=== PATIENT | male | born 1955 | race Caucasian/White ===

== ENCOUNTER 2021-05-12 11:48 | Emergency (ER) | payer BC ==
[~2021-05-12] VITALS: Ht 177.8 cm; Wt 114.3 kg
[2021-05-12] MEDS ORDERED: ASPIRIN 81 MG CHEW TAB PO ONE (12:15)
[2021-05-12 12:31] LABS: EOSINOPHILS # (AUTO) 0.1 (0.0-0.4); EOSINOPHILS % 0.3 % (0.0-6.0); HEMATOCRIT 43.6 % (38.2-49.6); HEMOGLOBIN 13.9 g/dL (14.0-18.0); LYMPHOCYTES # (AUTO) 40.1 (1.0-3.2); LYMPHOCYTES % 83.7 % (18.0-39.1); MEAN CORPUSCULAR HGB CONC 31.9 g/dL (31-35); MEAN CORPUSCULAR VOLUME 94.2 fL (81-99); MONOCYTES # (AUTO) 0.8 (0.2-0.8); MONOCYTES % 1.6 % (4.4-11.3); NEUTROPHILS # (AUTO) 6.7 (2.1-6.9); NEUTROPHILS % 13.9 % (38.7-80.0); PLATELET COUNT 140 x10e3/uL (140-360); RED BLOOD COUNT 4.63 x10e6/uL (4.3-5.7); RED CELL DISTRIBUTION WIDTH 15.3 % (11.7-14.4)
[2021-05-12 12:40] LABS: INR 1.07; PARTIAL THROMBOPLASTIN TIME 30.3 seconds (23.8-35.5); PROTHROMBIN TIME 14.3 seconds (11.9-14.5)
[2021-05-12 12:51] LABS: ALBUMIN 4.5 g/dL (3.5-5.0); ALBUMIN/GLOBULIN RATIO 2.3 (0.8-2.0); ANION GAP 13.1 mmol/L (8-16); BILIRUBIN,DIRECT 0.4 mg/dL (0.0-0.5); CALCIUM 9.4 mg/dL (8.4-10.2); CREATININE, SERUM 0.92 mg/dL (0.72-1.25); MAGNESIUM 1.4 MG/DL (1.3-2.1); POTASSIUM 4.1 mmol/L (3.5-5.1)
[2021-05-12 12:57] LABS: CREATINE KINASE MB 1.5 ng/mL (0-5.0)
[2021-05-12 14:04] LABS: EOSINOPHILS % (MANUAL) 1 % (0-7); LYMPHOCYTES % (MANUAL) 41 % (19-48); MONOCYTES % (MANUAL) 1 % (3.4-9.0); NEUTROPHILS % (MANUAL) 12 % (40-74)
[2021-05-12 14:07] LABS: PLATELET ESTIMATE ADEQUATE; PLATELET MORPHOLOGY COMMENT NORMAL; RBC MORPHOLOGY COMMENT NORMAL; SMUDGE CELLS FEW
== END 2021-05-12 18:48 | disposition home or self-care (01) ==
LOC: ER 12:30
DX: K40.90 Unilateral inguinal hernia, without obstruction or gangrene, not specified as recurrent (principal); I10 Essential (primary) hypertension; E11.65 Type 2 diabetes mellitus with hyperglycemia
CPT/HCPCS: 36415; 71045; 80053; 82248; 82550; 82553; 83690; 83735; 83880; 84484; 85025; 85610; 85730; 88112; 88305; 93005; 99284; U0002

== ENCOUNTER 2022-08-11 12:33 | Emergency (ER) | payer BC ==
[~2022-08-11] VITALS: Ht 177.8 cm; Wt 114.3 kg
[2022-08-11 13:29] LABS: BASOPHILS # (AUTO) 0.1 (0.0-0.1); BASOPHILS % 0.2 % (0.0-1.0); HEMATOCRIT 45.1 % (38.2-49.6); HEMOGLOBIN 13.8 g/dL (14.0-18.0); LYMPHOCYTES # (AUTO) 30.4 (1.0-3.2); LYMPHOCYTES % 81.8 % (18.0-39.1); MEAN CORPUSCULAR HEMOGLOBIN 30.1 pg (28-32); MEAN CORPUSCULAR HGB CONC 30.6 g/dL (31-35); MEAN CORPUSCULAR VOLUME 98.5 fL (81-99); MONOCYTES # (AUTO) 1.4 (0.2-0.8); MONOCYTES % 3.8 % (4.4-11.3); NEUTROPHILS # (AUTO) 5.2 (2.1-6.9); PLATELET COUNT 134 x10e3/uL (140-360); RED BLOOD COUNT 4.58 x10e6/uL (4.3-5.7)
[2022-08-11 13:46] LABS: ALBUMIN 3.9 g/dL (3.5-5.0); ALBUMIN/GLOBULIN RATIO 1.8 (0.8-2.0); ANION GAP 16.3 mmol/L (8-16); CREATININE, SERUM 0.85 mg/dL (0.72-1.25); POTASSIUM 4.3 mmol/L (3.5-5.1)
[2022-08-11] MEDS ORDERED: IOPAMIDOL 370 MG/ML 100 ML INFUS..BTL INJ ONE (14:06)
[2022-08-11 16:00] LABS: LYMPHOCYTES % (MANUAL) 66 % (19-48); MONOCYTES % (MANUAL) 2 % (3.4-9.0); NEUTROPHILS % (MANUAL) 17 % (40-74)
[2022-08-11 16:01] LABS: PLATELET ESTIMATE ADEQUATE; PLATELET MORPHOLOGY COMMENT NORMAL; RBC MORPHOLOGY COMMENT NORMAL
== END 2022-08-11 17:20 | disposition home or self-care (01) ==
LOC: ER 12:43
DX: U07.1 COVID-19 (principal); I10 Essential (primary) hypertension; E11.9 Type 2 diabetes mellitus without complications
CPT/HCPCS: 36415; 71260; 80053; 83880; 84484; 85025; 93005; 99284; Q9967; U0002

== ENCOUNTER → 2022-11-19 | Outpatient (CLI) | payer BC ==
[~2022-11-19] MED LIST: LIDOCAINE VISC 2% SOLN 15 ML UDC ONE; LIDOCAINE/PRILOCAINE 2.5-2.5% KIT ONE; MINERAL OIL/PETROLAT/GLYCERI 6OZ BTL ONE; MUPIROCIN 2% OINT 22 GM TUBE ONE; TRIAMCINOLONE ACET 0.1% CREAM 15 GM TUBE ONE
[2022-11-19 18:30] LABS: BASOPHILS # (AUTO) 0.1 (0.0-0.1); BASOPHILS % 0.3 % (0.0-1.0); EOSINOPHILS # (AUTO) 0.1 (0.0-0.4); EOSINOPHILS % 0.4 % (0.0-6.0); HEMATOCRIT 42.8 % (38.2-49.6); HEMOGLOBIN 13.8 g/dL (14.0-18.0); LYMPHOCYTES # (AUTO) 28.5 (1.0-3.2); LYMPHOCYTES % 77.5 % (18.0-39.1); MEAN CORPUSCULAR HEMOGLOBIN 29.9 pg (28-32); MEAN CORPUSCULAR HGB CONC 32.2 g/dL (31-35); MEAN CORPUSCULAR VOLUME 92.8 fL (81-99); MONOCYTES # (AUTO) 1.2 (0.2-0.8); MONOCYTES % 3.2 % (4.4-11.3); NEUTROPHILS # (AUTO) 6.8 (2.1-6.9); NEUTROPHILS % 18.4 % (38.7-80.0); PLATELET COUNT 184 x10e3/uL (140-360); RED BLOOD COUNT 4.61 x10e6/uL (4.3-5.7); RED CELL DISTRIBUTION WIDTH 15.9 % (11.7-14.4)
[2022-11-19 18:41] LABS: ALBUMIN 4.4 g/dL (3.5-5.0); ALBUMIN/GLOBULIN RATIO 1.9 (0.8-2.0); ANION GAP 15.1 mmol/L (8-16); CALCIUM 9.6 mg/dL (8.4-10.2); CREATININE, SERUM 0.82 mg/dL (0.72-1.25); POTASSIUM 4.1 mmol/L (3.5-5.1)
[2022-11-19 20:12] LABS: LYMPHOCYTES % (MANUAL) 72 % (19-48); MONOCYTES % (MANUAL) 7 % (3.4-9.0); NEUTROPHILS % (MANUAL) 16 % (40-74); PLATELET ESTIMATE ADEQUATE; PLATELET MORPHOLOGY COMMENT NORMAL; RBC MORPHOLOGY COMMENT NORMAL
== END ==
LOC: WCC 12:54
PROVIDERS: ATTEND Family Medicine Adult Medicine
DX: I87.331 Chronic venous hypertension (idiopathic) with ulcer and inflammation of right lower extremity (principal); L97.811 Non-pressure chronic ulcer of other part of right lower leg limited to breakdown of skin; L97.821 Non-pressure chronic ulcer of other part of left lower leg limited to breakdown of skin; I87.332 Chronic venous hypertension (idiopathic) with ulcer and inflammation of left lower extremity; R60.9 Edema, unspecified
CPT/HCPCS: 36415; 80053; 83036; 84134; 85025

== ENCOUNTER → 2022-11-23 | Outpatient (CLI) | payer BC | LOC: WCC 12:30 | PROVIDERS: ATTEND Family Medicine Adult Medicine | DX: I87.331 Chronic venous hypertension (idiopathic) with ulcer and inflammation of right lower extremity (principal); I87.332 Chronic venous hypertension (idiopathic) with ulcer and inflammation of left lower extremity; L97.811 Non-pressure chronic ulcer of other part of right lower leg limited to breakdown of skin; L97.821 Non-pressure chronic ulcer of other part of left lower leg limited to breakdown of skin; R60.9 Edema, unspecified ==

== ENCOUNTER → 2022-11-25 | Outpatient (CLI) | payer BC | LOC: WCC 09:19 | PROVIDERS: ATTEND Family Medicine Adult Medicine | DX: I87.331 Chronic venous hypertension (idiopathic) with ulcer and inflammation of right lower extremity (principal); I87.332 Chronic venous hypertension (idiopathic) with ulcer and inflammation of left lower extremity; L97.811 Non-pressure chronic ulcer of other part of right lower leg limited to breakdown of skin; L97.821 Non-pressure chronic ulcer of other part of left lower leg limited to breakdown of skin; I89.0 Lymphedema, not elsewhere classified; R60.9 Edema, unspecified; I87.2 Venous insufficiency (chronic) (peripheral) ==

== ENCOUNTER → 2022-11-27 | Outpatient (CLI) | payer BC | LOC: WCC 13:29 → EDSTATUS 16:24 | PROVIDERS: ATTEND Family Medicine Adult Medicine | DX: I87.331 Chronic venous hypertension (idiopathic) with ulcer and inflammation of right lower extremity (principal); I87.332 Chronic venous hypertension (idiopathic) with ulcer and inflammation of left lower extremity; L97.811 Non-pressure chronic ulcer of other part of right lower leg limited to breakdown of skin; L97.821 Non-pressure chronic ulcer of other part of left lower leg limited to breakdown of skin ==

== ENCOUNTER → 2022-11-30 | Outpatient (CLI) | payer BC ==
[~2022-11-30] MED LIST changes: +COLLAGENASE OINTMENT 30 GM TUBE ONE; -LIDOCAINE/PRILOCAINE 2.5-2.5% KIT ONE
== END ==
LOC: WCC 09:52
PROVIDERS: ATTEND Family Medicine Adult Medicine
DX: I87.331 Chronic venous hypertension (idiopathic) with ulcer and inflammation of right lower extremity (principal); I87.332 Chronic venous hypertension (idiopathic) with ulcer and inflammation of left lower extremity; L97.811 Non-pressure chronic ulcer of other part of right lower leg limited to breakdown of skin; L97.821 Non-pressure chronic ulcer of other part of left lower leg limited to breakdown of skin; R60.9 Edema, unspecified

== ENCOUNTER → 2022-12-01 | Outpatient (CLI) | payer BC | LOC: RAD 13:16 | PROVIDERS: ATTEND Family Medicine Adult Medicine | DX: R60.9 Edema, unspecified (principal) | CPT/HCPCS: 93922; 93925; 93970 ==

== ENCOUNTER → 2022-12-02 | Outpatient (CLI) | payer BC | LOC: WCC 10:30 | PROVIDERS: ATTEND Family Medicine Adult Medicine | DX: I87.331 Chronic venous hypertension (idiopathic) with ulcer and inflammation of right lower extremity (principal); I87.332 Chronic venous hypertension (idiopathic) with ulcer and inflammation of left lower extremity; L97.811 Non-pressure chronic ulcer of other part of right lower leg limited to breakdown of skin; L97.821 Non-pressure chronic ulcer of other part of left lower leg limited to breakdown of skin; I89.0 Lymphedema, not elsewhere classified; I87.2 Venous insufficiency (chronic) (peripheral) ==

== ENCOUNTER → 2022-12-04 | Outpatient (CLI) | payer BC | LOC: WCC 09:14 | PROVIDERS: ATTEND Family Medicine Adult Medicine | DX: R60.9 Edema, unspecified (principal) ==

== ENCOUNTER → 2022-12-07 | Outpatient (CLI) | payer BC | LOC: WCC 08:05 | PROVIDERS: ATTEND Family Medicine Adult Medicine | DX: I87.331 Chronic venous hypertension (idiopathic) with ulcer and inflammation of right lower extremity (principal); I87.332 Chronic venous hypertension (idiopathic) with ulcer and inflammation of left lower extremity; L97.811 Non-pressure chronic ulcer of other part of right lower leg limited to breakdown of skin; L97.821 Non-pressure chronic ulcer of other part of left lower leg limited to breakdown of skin; I87.2 Venous insufficiency (chronic) (peripheral); I89.0 Lymphedema, not elsewhere classified; R60.9 Edema, unspecified ==

== ENCOUNTER → 2022-12-10 | Outpatient (CLI) | payer BC | LOC: WCC 10:56 | PROVIDERS: ATTEND Specialist | DX: I87.331 Chronic venous hypertension (idiopathic) with ulcer and inflammation of right lower extremity (principal); L97.811 Non-pressure chronic ulcer of other part of right lower leg limited to breakdown of skin; I89.0 Lymphedema, not elsewhere classified; R60.9 Edema, unspecified ==

== ENCOUNTER → 2022-12-14 | Outpatient (CLI) | payer BC | LOC: WCC 08:00 | PROVIDERS: ATTEND Family Medicine Adult Medicine | DX: I87.331 Chronic venous hypertension (idiopathic) with ulcer and inflammation of right lower extremity (principal); I87.332 Chronic venous hypertension (idiopathic) with ulcer and inflammation of left lower extremity; L97.811 Non-pressure chronic ulcer of other part of right lower leg limited to breakdown of skin; L97.821 Non-pressure chronic ulcer of other part of left lower leg limited to breakdown of skin; I87.2 Venous insufficiency (chronic) (peripheral); R60.9 Edema, unspecified ==

== ENCOUNTER → 2022-12-16 | Outpatient (CLI) | payer BC | LOC: WCC 11:00 | PROVIDERS: ATTEND Family Medicine Adult Medicine | DX: I87.331 Chronic venous hypertension (idiopathic) with ulcer and inflammation of right lower extremity (principal); I87.332 Chronic venous hypertension (idiopathic) with ulcer and inflammation of left lower extremity; L97.811 Non-pressure chronic ulcer of other part of right lower leg limited to breakdown of skin; L97.821 Non-pressure chronic ulcer of other part of left lower leg limited to breakdown of skin; I87.2 Venous insufficiency (chronic) (peripheral); R60.9 Edema, unspecified ==

== ENCOUNTER → 2022-12-18 | Outpatient (CLI) | payer BC | LOC: WCC 13:50 | PROVIDERS: ATTEND Family Medicine Adult Medicine | DX: I87.331 Chronic venous hypertension (idiopathic) with ulcer and inflammation of right lower extremity (principal); I87.332 Chronic venous hypertension (idiopathic) with ulcer and inflammation of left lower extremity; L97.811 Non-pressure chronic ulcer of other part of right lower leg limited to breakdown of skin; L97.821 Non-pressure chronic ulcer of other part of left lower leg limited to breakdown of skin; I87.2 Venous insufficiency (chronic) (peripheral); R60.9 Edema, unspecified ==

== ENCOUNTER → 2022-12-21 | Outpatient (CLI) | payer BC | LOC: WCC 15:35 | PROVIDERS: ATTEND Family Medicine Adult Medicine | DX: I87.331 Chronic venous hypertension (idiopathic) with ulcer and inflammation of right lower extremity (principal); L97.811 Non-pressure chronic ulcer of other part of right lower leg limited to breakdown of skin; R60.9 Edema, unspecified ==

== ENCOUNTER → 2022-12-23 | Outpatient (CLI) | payer BC | LOC: WCC 08:00 | PROVIDERS: ATTEND Family Medicine Adult Medicine | DX: I87.331 Chronic venous hypertension (idiopathic) with ulcer and inflammation of right lower extremity (principal); L97.811 Non-pressure chronic ulcer of other part of right lower leg limited to breakdown of skin; R60.9 Edema, unspecified ==

== ENCOUNTER → 2022-12-25 | Outpatient (CLI) | payer BC | LOC: WCC 12:59 | PROVIDERS: ATTEND Family Medicine Adult Medicine | DX: I87.331 Chronic venous hypertension (idiopathic) with ulcer and inflammation of right lower extremity (principal); I87.332 Chronic venous hypertension (idiopathic) with ulcer and inflammation of left lower extremity; L97.811 Non-pressure chronic ulcer of other part of right lower leg limited to breakdown of skin; L97.821 Non-pressure chronic ulcer of other part of left lower leg limited to breakdown of skin; I89.0 Lymphedema, not elsewhere classified; I87.2 Venous insufficiency (chronic) (peripheral) ==

== ENCOUNTER → 2022-12-29 | Outpatient (CLI) | payer BC | LOC: WCC 08:00 | PROVIDERS: ATTEND Family Medicine Adult Medicine | DX: I87.331 Chronic venous hypertension (idiopathic) with ulcer and inflammation of right lower extremity (principal); I87.332 Chronic venous hypertension (idiopathic) with ulcer and inflammation of left lower extremity; L97.811 Non-pressure chronic ulcer of other part of right lower leg limited to breakdown of skin; L97.821 Non-pressure chronic ulcer of other part of left lower leg limited to breakdown of skin; I89.0 Lymphedema, not elsewhere classified; I87.2 Venous insufficiency (chronic) (peripheral); R60.9 Edema, unspecified ==

== ENCOUNTER → 2023-01-01 | Outpatient (CLI) | payer BC ==
[~2023-01-01] MED LIST changes: -COLLAGENASE OINTMENT 30 GM TUBE ONE; -LIDOCAINE VISC 2% SOLN 15 ML UDC ONE; -MUPIROCIN 2% OINT 22 GM TUBE ONE
== END ==
LOC: WCC 15:19
PROVIDERS: ATTEND Family Medicine Adult Medicine
DX: R60.9 Edema, unspecified (principal)

== ENCOUNTER → 2023-01-04 | Outpatient (CLI) | payer BC | LOC: WCC 13:50 | PROVIDERS: ATTEND Family Medicine Adult Medicine | DX: R60.9 Edema, unspecified (principal) ==

== ENCOUNTER → 2023-01-06 | Outpatient (CLI) | payer BC | LOC: WCC 11:07 | PROVIDERS: ATTEND Family Medicine Adult Medicine | DX: I87.331 Chronic venous hypertension (idiopathic) with ulcer and inflammation of right lower extremity (principal); L97.811 Non-pressure chronic ulcer of other part of right lower leg limited to breakdown of skin; R60.9 Edema, unspecified; I87.332 Chronic venous hypertension (idiopathic) with ulcer and inflammation of left lower extremity; L97.821 Non-pressure chronic ulcer of other part of left lower leg limited to breakdown of skin; I89.0 Lymphedema, not elsewhere classified; I87.2 Venous insufficiency (chronic) (peripheral) ==

== ENCOUNTER → 2023-01-08 | Outpatient (CLI) | payer BC | LOC: WCC 12:53 | PROVIDERS: ATTEND Family Medicine Adult Medicine | DX: I87.332 Chronic venous hypertension (idiopathic) with ulcer and inflammation of left lower extremity (principal); L97.821 Non-pressure chronic ulcer of other part of left lower leg limited to breakdown of skin; I87.2 Venous insufficiency (chronic) (peripheral); I89.0 Lymphedema, not elsewhere classified; R60.9 Edema, unspecified ==

== ENCOUNTER → 2023-01-11 | Outpatient (CLI) | payer BC | LOC: WCC 13:11 | PROVIDERS: ATTEND Family Medicine Adult Medicine | DX: I87.2 Venous insufficiency (chronic) (peripheral) (principal) ==

== ENCOUNTER → 2023-01-13 | Outpatient (CLI) | payer BC | LOC: WCC 08:00 | PROVIDERS: ATTEND Family Medicine Adult Medicine | DX: I87.332 Chronic venous hypertension (idiopathic) with ulcer and inflammation of left lower extremity (principal); L97.821 Non-pressure chronic ulcer of other part of left lower leg limited to breakdown of skin; I87.2 Venous insufficiency (chronic) (peripheral); I89.0 Lymphedema, not elsewhere classified; R60.9 Edema, unspecified ==

== ENCOUNTER → 2023-01-15 | Outpatient (CLI) | payer BC | LOC: WCC 01-14 10:16 | PROVIDERS: ATTEND Family Medicine Adult Medicine | DX: R60.9 Edema, unspecified (principal) ==

== ENCOUNTER → 2023-01-18 | Outpatient (CLI) | payer BC | LOC: WCC 08:00 | PROVIDERS: ATTEND Family Medicine Adult Medicine | DX: I87.332 Chronic venous hypertension (idiopathic) with ulcer and inflammation of left lower extremity (principal); L97.821 Non-pressure chronic ulcer of other part of left lower leg limited to breakdown of skin; R60.9 Edema, unspecified ==

== ENCOUNTER → 2023-01-20 | Outpatient (CLI) | payer BC | LOC: WCC 09:30 | PROVIDERS: ATTEND Family Medicine Adult Medicine | DX: I87.332 Chronic venous hypertension (idiopathic) with ulcer and inflammation of left lower extremity (principal); L97.821 Non-pressure chronic ulcer of other part of left lower leg limited to breakdown of skin; I87.2 Venous insufficiency (chronic) (peripheral); R60.9 Edema, unspecified ==

== ENCOUNTER → 2023-01-22 | Outpatient (CLI) | payer BC | LOC: WCC 13:10 | PROVIDERS: ATTEND Family Medicine Adult Medicine | DX: R60.9 Edema, unspecified (principal) ==

== ENCOUNTER → 2023-01-25 | Outpatient (CLI) | payer BC ==
[~2023-01-25] MED LIST changes: +FENTANYL CITRATE/PF 100MCG/2 ML INJ ONE; +HEPARIN SOD (PORCINE) 1000 UNIT/ML SDV ONE; -MINERAL OIL/PETROLAT/GLYCERI 6OZ BTL ONE; +SODIUM CHLORIDE 0.9% 250ML 0 ML ONE; -TRIAMCINOLONE ACET 0.1% CREAM 15 GM TUBE ONE
== END ==
LOC: WCC 08:56
PROVIDERS: ATTEND Family Medicine Adult Medicine
DX: I87.332 Chronic venous hypertension (idiopathic) with ulcer and inflammation of left lower extremity (principal); L97.821 Non-pressure chronic ulcer of other part of left lower leg limited to breakdown of skin; R60.9 Edema, unspecified

== ENCOUNTER → 2023-01-28 | Outpatient (CLI) | payer BC | LOC: WCC 10:04 | PROVIDERS: ATTEND Family Medicine Adult Medicine | DX: I87.332 Chronic venous hypertension (idiopathic) with ulcer and inflammation of left lower extremity (principal); L97.821 Non-pressure chronic ulcer of other part of left lower leg limited to breakdown of skin; R60.9 Edema, unspecified ==

== ENCOUNTER 2024-04-09 04:24 | Inpatient (IN) | payer BC ==
[2024-04-09] VITALS (8 sets, daily range): BP systolic 154–177; BP diastolic 51–67; PULSE 62–82; RESP 16–18; TEMP 97.5–98.2; O2SAT 95–96
[~2024-04-09] VITALS: Ht 177.8 cm; Wt 104.3 kg
[2024-04-09] MEDS ORDERED: SODIUM CHLORIDE FLUSH 10 ML SYR IV PRN (04:45)
[2024-04-09] MEDS: ASPIRIN 81 MG CHEW TAB PO ONE ×2 (04:48→06:19)
[2024-04-09] MEDS: DILTIAZEM HCL 5 MG/ML 5 ML VIAL IV ONE (04:48)
[2024-04-09 05:10] LABS: BASOPHILS # (AUTO) 0.1 (0.0-0.1); BASOPHILS % 0.3 % (0.0-1.0); EOSINOPHILS # (AUTO) 0.2 (0.0-0.4); EOSINOPHILS % 0.4 % (0.0-6.0); HEMATOCRIT 49.7 % (38.2-49.6); LYMPHOCYTES # (AUTO) 26.2 (1.0-3.2); MEAN CORPUSCULAR HEMOGLOBIN 30.4 pg (28-32); MEAN CORPUSCULAR HGB CONC 32.2 g/dL (31-35); MEAN CORPUSCULAR VOLUME 94.3 fL (81-99); MONOCYTES # (AUTO) 1.6 (0.2-0.8); MONOCYTES % 4.2 % (4.4-11.3); NEUTROPHILS # (AUTO) 9.8 (2.1-6.9); NEUTROPHILS % 25.7 % (38.7-80.0); PLATELET COUNT 254 x10e3/uL (140-360); RED BLOOD COUNT 5.27 x10e6/uL (4.3-5.7); RED CELL DISTRIBUTION WIDTH 14.2 % (11.7-14.4); WHITE BLOOD COUNT 38.05 x10e3/uL (4.8-10.8)
[2024-04-09] MEDS ORDERED: DILTIAZEM HCL 125 ML IV SCH (05:30)
[2024-04-09 05:51] LABS: TROPONIN I 0.009 ng/mL (0-0.300)
[2024-04-09] MEDS: HEPARIN SOD (PORCINE) 5,000 UNIT/ML VIAL IV ONE (05:51)
[2024-04-09] MEDS ORDERED: DILTIAZEM HCL IV 5MG/ML 25 ML VIAL ONE (05:51)
[2024-04-09] MEDS: HEPARIN SOD/DEXTROSE 5% 25000 UNIT/250 ML BAG IV SCH (05:53)
[2024-04-09] MEDS ORDERED: SODIUM CHLORIDE FLUSH 10 ML SYR INJ PRN (06:00)
[2024-04-09] MEDS ORDERED: ONDANSETRON HCL INJ 2MG/ML 2ML 2 MG/ML VIAL IV PRN (06:00)
[2024-04-09 06:01] LABS: INR 0.95; PROTHROMBIN TIME 13.2 seconds (11.9-14.5)
[2024-04-09 06:02] LABS: PARTIAL THROMBOPLASTIN TIME 30.9 seconds (23.8-35.5)
[2024-04-09 06:08] LABS: ALBUMIN 4.3 g/dL (3.5-5.0); ALBUMIN/GLOBULIN RATIO 1.7 (0.8-2.0); ANION GAP 19.7 mmol/L (8-16); BILIRUBIN,TOTAL 0.7 mg/dL (0.2-1.2); CALCIUM 9.9 mg/dL (8.4-10.2); CREATININE, SERUM 1.24 mg/dL (0.72-1.25); POTASSIUM 3.7 mmol/L (3.5-5.1); TOTAL PROTEIN 6.8 g/dL (6.5-8.1)
[2024-04-09 07:40] LABS: LYMPHOCYTES % (MANUAL) 57 % (19-48); MONOCYTES % (MANUAL) 8 % (3.4-9.0); NEUTROPHILS % (MANUAL) 35 % (40-74)
[2024-04-09 07:41] LABS: PLATELET ESTIMATE ADEQUATE; PLATELET MORPHOLOGY COMMENT NORMAL; RBC MORPHOLOGY COMMENT NORMAL; SMUDGE CELLS MODERATE
[2024-04-09] MEDS: DILTIAZEM HCL 30 MG TAB PO SCH (07:57)
[2024-04-09] MEDS ORDERED: ALLOPURINOL100 MG PO (08:24)
[2024-04-09] MEDS ORDERED: ATORVASTATIN CA20 MG PO (08:24)
[2024-04-09] MEDS ORDERED: GLIMEPIRIDE4 MG PO (08:24)
[2024-04-09] MEDS ORDERED: METOPROLOL TART75 MG PO (08:24)
[2024-04-09] MEDS ORDERED: ASPIRIN81 MG PO (08:24)
[2024-04-09] MEDS ORDERED: AMLODIPINE BESYL5 MG PO (08:24)
[2024-04-09] MEDS ORDERED: HYDRALAZINE HC100 MG PO (08:24)
[2024-04-09] MEDS ORDERED: METFORMIN HCL500 MG PO (08:24)
[2024-04-09] MEDS ORDERED: MELATONIN3 MG PO (08:30)
[2024-04-09 09:33] LABS: CHOL/HDL RATIO 3.1 (3.9-4.7)
[2024-04-09 09:53] LABS: THYROID STIMULATING HORMONE 1.318 uIU/mL (0.350-4.940)
[2024-04-09] MEDS: METOPROLOL TARTRATE 25 MG TAB PO SCH (12:27)
[2024-04-09 14:30] LABS: TROPONIN I 0.059 ng/mL (0-0.300)
[2024-04-09] MEDS: AMIODARONE HCL 200 MG TAB PO SCH (16:28)
[2024-04-09] MEDS: ENOXAPARIN SODIUM INJ 100 MG/ML SYR SC SCH (22:04)
[2024-04-10] VITALS (8 sets, daily range): BP systolic 151–171; BP diastolic 54–74; PULSE 59–65; RESP 17–20; TEMP 97.5–98.2; O2SAT 93–95
[2024-04-10 06:22] LABS: BASOPHILS # (AUTO) 0.1 (0.0-0.1); BASOPHILS % 0.3 % (0.0-1.0); EOSINOPHILS # (AUTO) 0.2 (0.0-0.4); EOSINOPHILS % 0.5 % (0.0-6.0); HEMATOCRIT 44.5 % (38.2-49.6); HEMOGLOBIN 14.5 g/dL (14.0-18.0); LYMPHOCYTES # (AUTO) 25.6 (1.0-3.2); LYMPHOCYTES % 73.6 % (18.0-39.1); MEAN CORPUSCULAR HEMOGLOBIN 30.8 pg (28-32); MEAN CORPUSCULAR HGB CONC 32.6 g/dL (31-35); MEAN CORPUSCULAR VOLUME 94.5 fL (81-99); MONOCYTES # (AUTO) 1.2 (0.2-0.8); MONOCYTES % 3.3 % (4.4-11.3); NEUTROPHILS # (AUTO) 7.6 (2.1-6.9); PLATELET COUNT 211 x10e3/uL (140-360); RED BLOOD COUNT 4.71 x10e6/uL (4.3-5.7); RED CELL DISTRIBUTION WIDTH 13.8 % (11.7-14.4)
[2024-04-10 06:46] LABS: ALBUMIN 3.7 g/dL (3.5-5.0); ALBUMIN/GLOBULIN RATIO 1.7 (0.8-2.0); BILIRUBIN,TOTAL 0.7 mg/dL (0.2-1.2); CALCIUM 9.3 mg/dL (8.4-10.2); CREATININE, SERUM 0.88 mg/dL (0.72-1.25); TOTAL PROTEIN 5.9 g/dL (6.5-8.1)
[2024-04-10 07:28] LABS: TROPONIN I 0.016 ng/mL (0-0.300)
[2024-04-10 10:08] LABS: EOSINOPHILS % (MANUAL) 1 % (0-7); LYMPHOCYTES % (MANUAL) 65 % (19-48); MONOCYTES % (MANUAL) 3 % (3.4-9.0); NEUTROPHILS % (MANUAL) 29 % (40-74); PLATELET ESTIMATE ADEQUATE; PLATELET MORPHOLOGY COMMENT NORMAL; RBC MORPHOLOGY COMMENT NORMAL; REACTIVE LYMPHOCYTES 2; SMUDGE CELLS FEW
[2024-04-10 12:47] LABS: BODY FLUID APPEARANCE CLOUDY; BODY FLUID COLOR YELLOW; BODY FLUID TYPE PLEURAL; RBC,BODY FLUID 6000 cells/uL; WBC,BODY FLUID 640 cells/uL
[2024-04-10 15:42] LABS: LYMPHOCYTES,BODY FLUID 63 %; MONO/MACROPHG,BODY FLUID 8 %; NEUTROPHILS,BODY FLUID 29 %; TOTAL CELLS COUNTED (DIFF) 100
[2024-04-10] MEDS: METFORMIN HCL 500 MG TAB PO SCH (21:00)
[2024-04-10] MEDS: ATORVASTATIN 20 MG TAB PO SCH (21:00)
[2024-04-10] MEDS: MELATONIN 3 MG TAB PO SCH (21:00)
[2024-04-10] MEDS: BISACODYL 5 MG TAB EC PO ONE (21:43)
[2024-04-11] VITALS (8 sets, daily range): BP systolic 123–145; BP diastolic 51–59; PULSE 58–68; RESP 17–20; TEMP 97.5–98.2; O2SAT 96–99
[2024-04-11] MEDS: GLIMEPIRIDE 2 MG TAB PO SCH (08:00)
[2024-04-11] MEDS: ALLOPURINOL 100 MG TAB PO SCH (09:00)
[2024-04-11] MEDS: BISACODYL 5 MG TAB EC PO SCH (09:00)
[2024-04-11] MEDS: AMLODIPINE BESYLATE 5 MG TAB PO SCH (09:00)
[2024-04-11] MEDS: AMIODARONE HCL 200 MG TAB PO ONE (10:56)
[2024-04-11] MEDS: METOPROLOL SUCCINATE 50 MG TAB XL PO SCH (13:02)
[2024-04-11] MEDS: APIXABAN 5 MG TABLET PO SCH (17:32)
[2024-04-11] MEDS: AMIODARONE HCL 200 MG TAB PO SCH (17:32)
[2024-04-11] MEDS ORDERED: IOPAMIDOL 370 MG/ML 100 ML INFUS..BTL INJ ONE (21:25)
[2024-04-12] VITALS (8 sets, daily range): BP systolic 130–177; BP diastolic 53–72; PULSE 66–73; RESP 18–20; TEMP 98.1–99.8; O2SAT 96–100
[2024-04-12] MEDS: HYDRALAZINE HCL 100 MG TABLET PO SCH (21:00)
[2024-04-12] MEDS ORDERED: IOPAMIDOL 370 MG/ML 100 ML INFUS..BTL INJ ONE (21:58)
[2024-04-13] VITALS: BP 146/57; PULSE 68; RESP 17; TEMP 98.3; O2SAT 98
[2024-04-13 04:00] VITALS: BP 138/63; PULSE 64; RESP 18; TEMP 98; O2SAT 99
[2024-04-13 08:08] VITALS: BP 145/61; PULSE 63; RESP 18; TEMP 99.1; O2SAT 96
[2024-04-13 10:44] VITALS: BP 145/61; PULSE 63; RESP 18; TEMP 99.1; O2SAT 96
[2024-04-13 11:43] VITALS: BP 138/65; PULSE 65; RESP 18; TEMP 98; O2SAT 98
[2024-04-13 15:52] VITALS: BP 174/64; PULSE 66; RESP 18; TEMP 98.1; O2SAT 96
[2024-04-13] MEDS ORDERED: AMIODARONE HCL200 MG PO (16:22)
[2024-04-13] MEDS ORDERED: METOPROLOL SUCC50 MG PO (16:22)
[2024-04-13] MEDS ORDERED: ELIQUIS5 MG PO (16:25)
[2024-04-20 20:46] LABS: TOTAL PROTEIN,BODY FLUID 3.8 g/dL
== END 2024-04-13 18:08 | disposition home or self-care (01) | DRG 187 ==
LOC: ER 04:27 → ERHOLD 05:49 → MED/SURG2 08:05
PROVIDERS: ADMIT Family Medicine; ATTEND Family Medicine
PROC: 0W9B3ZZ Drainage of Left Pleural Cavity, Percutaneous Approach (ICD-10-PCS; principal; 2024-04-10)
DX: J90 Pleural effusion, not elsewhere classified (principal); C91.10 Chronic lymphocytic leukemia of B-cell type not having achieved remission; I48.91 Unspecified atrial fibrillation; E11.9 Type 2 diabetes mellitus without complications; I10 Essential (primary) hypertension; K80.20 Calculus of gallbladder without cholecystitis without obstruction; M10.9 Gout, unspecified; R91.1 Solitary pulmonary nodule; E78.5 Hyperlipidemia, unspecified; E66.9 Obesity, unspecified; Z68.33 Body mass index [BMI] 33.0-33.9, adult; Z79.01 Long term (current) use of anticoagulants; Z79.82 Long term (current) use of aspirin; Z79.84 Long term (current) use of oral hypoglycemic drugs; Z87.891 Personal history of nicotine dependence
CPT/HCPCS: 32555; 36415; 71045; 71250; 71260; 74177; 74470; 80053; 80061; 82550; 82945; 82947; 82948; 83615; 83880; 84157; 84443; 84484; 85025; 85610; 85730; 87040; 87070; 87205; 88112; 88305; 88342; 89051; 93005; 93306; 93970; 94760; 99252; 99284; C1729; J1644; J1650; Q9967